=== PATIENT | female | born 1990 | race Two or more races ===

== ENCOUNTER 2016-07-19 06:08 | Inpatient (IN) | payer MEDICAID, OTHER ==
--- NOTE | 2016-07-19 06:38 | ED Physician Chart ---
Chief Complaint/HPI - Patient Information Date Seen:: 07/19/16 Time Seen:: 06:20 Chief Complaint:: abdominal pain History of Present Illness:: THIS IS A 26 YR OLD FEMALE WITH THE ONSET OF ABDOMINAL THIS AM ( 0300 HRS) ASSOCIATED WITH NAUSEA AND VOMITING X7. SHE STATES THAT SHE SMOKES BUT DOES NOT DRINK. SHE DENIES ALL OTHER MEDICAL PROBLEMS. SHE STATES THAT SHE HAD A GASTRIC BANDING IN 2007. SHE DENIES . SHE DENIES DIARRHEA AND CONSTIPATION. SHE DENIES PAINFUL URINATION AND A VAGINAL DISCHARGE. Allergies:: Allergies Allergy/AdvReac Type Severity Reaction Status Date / Time No Known Allergies Allergy Verified 07/19/16 06:21 Vitals:: Vital Signs - 8 hr 07/19/16 06:10 Temp 98.7 F HR 98 RR 18 BP 118/61 O2 Sat % 100 Historian:: Patient Review:: Nurse's Note Reviewed Review of Systems - Review of Systems General/Constitutional: No fever, No chills, No weight loss, No weakness, No diaphoresis, No edema, No loss of appetite Skin: No skin lesions, No rash, No bruising Head: No headache, No light-headedness Eyes: No loss of vision, No pain, No diplopia ENT: No earache, No nasal drainage, No sore throat, No tinnitus Neck: No neck pain, No swelling, No thyromegaly, No stiffness, No mass noted Cardio Vascular: No chest pain, No palpitations, No PND, No orthopnea, No edema Pulmonary: No SOB, No cough, No sputum, No wheezing GI: Nausea, Vomiting, No diarrhea, Pain, No melena, No hematochezia, No constipation, No hematemesis G/U: No dysuria, No frequency, No hematuria Musculoskeletal: No bone or joint pain, No back pain, No muscle pain Endocrine: No polyuria, No polydipsia Psychiatric: No prior psych history, No depression, No anxiety, No suicidal ideation Hematopoietic: No bruising, No lymphadenopathy Allergic/Immuno: No urticaria, No angioedema Neurological: No syncope, No focal symptoms, No weakness, No paresthesia, No headache, No seizure, No dizziness, No confusion, No vertigo Past Medical History - Past Medical History Obtainable: Yes Past Medical History: No significant medical hx Family History: None Social History: Smoker, No Alcohol, No Drug Use Surgical History: other (GASTRIC STAPLING) Psychiatricy History: None Medication: Reviewed Family Medical History - Family Member Mother History Unknown: Yes Physical Exam - Physical Examination General/Constitutional: Awake, Well-developed, well-nourished, Alert, No distress, GCS 15, Non-toxic appearing, Ambulatory Head: Atraumatic Eyes: Lids, conjuctiva normal, PERRL, EOMI Skin: Nl inspection, No rash, No skin lesions, No ecchymosis, Well hydrated, No lymphadenopathy ENMT: External ears, nose nl, Nasal exam nl, Lips, teeth, gums nl Neck: Nontender, Full ROM w/o pain, No JVD, No nuchal rigidity, No bruit, No mass, No stridor Respiratory: Nl effort/Exclusion, Clear to Auscultation, No Wheeze/Rhonchi/Rales Cardio Vascular: RRR, No murmur, gallop, rubs, NL S1 S2 GI: No organomegaly, No hernia, Normal BS's, Nondistended, No mass/bruits, No McBurney tenderness Other GI comments:: THERE IS TENDERNESS IN THE EPIGASTRIC AND BLADDER AREA WITH MILD REBOUND. : No CVA tenderness Extremities: No tenderness or effusion, Full ROM, normal strength in all extremities, No edema, Normal digits & nails Neuro/Psych: Alert/oriented, DTR's symmetric, Normal sensory exam, Normal motor strength, Judgement/insight normal, Mood normal, Normal gait, No focal deficits Misc: normal gait, Normal back, No paraspinal tenderness Assessment - Assessment General Assessment: DR DEL TORO WILL CARE FOR THE PATIENT STARTING AT 0800 HRS. ED Septic Shock - . Is Septic Shock (SBP<90, OR Lactate>4 mmol\L) present?: No - <6hrs of presentation: Vital Signs: Vital Signs - 8 hr 07/19/16 06:10 Temp 98.7 F HR 98 RR 18 BP 118/61 O2 Sat % 100 Reassessment (Disposition) - Reassessment Reassessment Condition:: Improved - Aftercare/Follow up Instructions Aftercare/Follow-Up Instructions:: Counseled pt regarding lab results/diagnosis & need follow up, Refer to Discharge Instructions, Counseled pt & family regarding lab results/diagnosis & need follow up - Patient Disposition Discharge/Transfer:: Home Condition at Disposition:: Improved ED Discharge Plan - Patient Disposition Admit/Discharge/Transfer: PT DISCHARGED HOME Condition at Disposition: Improved
[2016-07-19 06:51] LABS: % BASOPHILS 1.7 % (0.0-2.0); % EOSINOPHILS 1.8 % (0.0-5.0); % LYMPHOCYTES 5.3 % (20.0-50.0); % MONOCYTES 3.1 % (2.0-10.0); % NEUTROPHILS 88.1 % (40.0-80.0); HEMATOCRIT 41.1 % (35.0-45.0); MEAN CELL VOLUME 81.5 fl (81-100); MEAN CORPUSCULAR HEMOGLOBIN 27.8 pg (27.0-31.0); MEAN CORPUSCULAR HGB CONC 34.1 pg (28.0-36.0); MEAN PLATELET VOLUME 7.8 fl; NEUTROPHILE ABSOLUTE 9.7 Th/cmm (1.8-8.0); PLATELET COUNT 243 Th/cmm (150-400); RED BLOOD COUNT 5.04 Mil/cmm (3.80-5.10); RED CELL DISTRIBUTION WIDTH 12.5 % (11.5-20.0)
[2016-07-19 07:07] LABS: ALB/GLOB RATIO 1.3 (1.0-1.8); ALKALINE PHOSPHATASE 59 U/L (34-104); BILIRUBIN,TOTAL 0.6 mg/dL (0.3-1.0); BUN - UREA NITROGEN 18 mg/dL (7-25); BUN/CREATININE RATIO 25.7; CARBON DIOXIDE 24.8 mEq/L (21.0-31.0); CHLORIDE 107 mEq/L (98-107); CREATININE - SERUM 0.7 mg/dL (0.6-1.2); GLUCOSE 108 mg/dL (70-105); POTASSIUM SERUM 3.8 mEq/L (3.5-5.1); SGOT 17 U/L (13-39); SGPT/ALT 6 U/L (7-52); SODIUM SERUM 138 mEq/L (136-145)
[2016-07-19] MEDS ORDERED: Sodium Chloride 0.9% 1,000 ML IV ONE (07:35)
[2016-07-19 07:43] LABS: URINE BILIRUBIN NEGATIVE (NEGATIVE); URINE BLOOD MODERATE (NEGATIVE); URINE COLOR YELLOW; URINE GLUCOSE (UA) NEGATIVE (NEGATIVE); URINE KETONE TRACE mg/dL (NEGATIVE); URINE PROTEIN TRACE mg/dL (NEGATIVE); URINE UROBILINOGEN 0.2 E.U./dL (0.2 - 1.0)
[2016-07-19 07:48] LABS: URINE BACTERIA FEW /hpf (NONE SEEN); URINE EPITHELIAL CELLS FEW /lpf (FEW); URINE WBC 0-2 /hpf (0-5)
--- NOTE | 2016-07-19 08:50 | Diagnostic Imaging Report ---
CT scan abdomen and pelvis without intravenous contrast HISTORY: Pain Total DLP equals 395 CTDI equals 8.5 Axial sections were obtained from the xiphoid process down to the pubic symphysis. Exam demonstrates gastric band near the gastroesophageal junction. The liver exhibits a homogeneous parenchyma. No focal lesions. Spleen appears normal. No focal abnormality seen in the region of the pancreas. No focal renal lesions. No calculi. No hydronephrosis. There is a distended probably fluid-filled stomach. Mildly dilated small bowel is noted. No colonic dilatation. Significance is uncertain. Changes related to a partial small bowel obstruction cannot be definitely excluded. Clinical correlation is needed. The exam of the pelvis demonstrates preservation of normal fat planes. No abnormal soft tissue masses or abnormal fluid collections. IMPRESSION: 1. Gastric band about the gastroesophageal junction 2. Dilated fluid-filled stomach along with mildly dilated small bowel. Findings of questionable significance. Changes related to partial small bowel obstruction cannot be definitely excluded. Clinical correlation is needed.
[2016-07-19] MEDS ORDERED: Diatrizoate Meglumine/Diatri 30 mL Sol PO ONE (13:12)
[2016-07-19] MEDS ORDERED: 0.9% NS w/20 mEq KCL 1,000 ML IV SCH (13:30)
[2016-07-19] MEDS ORDERED: Levofloxacin 500mg/100mL 500 MG/100 ML BAG IV SCH (14:00)
[2016-07-19] MEDS ORDERED: Morphine Sulfate 2 mg/mL 1mL Syr IVP PRN (15:09)
--- NOTE | 2016-07-19 16:19 | Diagnostic Imaging Report ---
Small bowel follow-through HISTORY: Abdominal distention, pain Water-soluble contrast was administered orally. There is free flow contrast from the stomach and the small bowel. There is a normal small bowel caliber and mucosal fold pattern. No focal abnormalities. Normal transit time to the colon. No evidence of any extrinsic masses. IMPRESSION: Normal examination. No evidence of obstruction.
[2016-07-19] MEDS: metroNIDAZOLE 500mg/NS 100mL 500 MG/100 ML BAG IV SCH ×2 (19:53→21:48)
--- NOTE | 2016-07-19 21:06 | Admit Criteria Form ---
Admit Criteria Forms - Admit Criteria Diagnosis: ABDOMINAL PAIN Clinical Indications for Admission to Inpatient Care (Place 'X' for any and all applicable criteria): Admission is indicated for ANY ONE of the following(1)(2)(3)(4)(5): [X]I. Inpatient admission required rather than observation care (Also use Abdominal Pain: Observation Care, as appropriate) because of ANY ONE of the following: [ ]a) Severe pain requiring acute inpatient management [ ]b) Identification of etiology/finding that requires inpatient care (eg, aortic dissection, free air) [ ]c) Absent bowel sounds with complete ileus(6) [ ]d) Suspected toxic megacolon [ ]e) Severe electrolyte abnormalities requiring inpatient care [ ]f) High fever or infection requiring inpatient admission as indicated by ANY ONE of following(7)(8): [ ] i) Appropriate outpatient or observational care antimicrobial treatment unavailable, not effective, or not feasible [ ] ii) Documented bacteremia [ ] iii) Temperature > 104.9 degrees F (oral) [ ] iv) T >103.1 F (oral) or < 96.8 F(rectal) that does not respond to all emergency treatment measures [X]g) Signs of intestinal obstruction [B] [ ]h) Hemodynamic instability [ ]i) IV fluid to replace significant ongoing losses (greater than 3 L/m2 per day) (12)(13) [ ]j) Percutaneous or open drainage (eg, abscess, biliary tract ) procedures [ ]k) Parenteral nutrition regimen that must be implemented on inpatient basis [ ]l) Other condition,treatment or monitoring requiring inpatient admission. [ ]II. Peritoneal signs present [ ]III. Surgery needed that cannot be performed on an ambulatory basis. [ ]IV. Evaluation requires patient to not eat or drink for extended period ( eg, more than 24 hours). [ ]V. Contraindications and/or Inappropriate clinical situations for Observational Care in patients with abdominal pain, when ANY ONE of the following is required: [ ]a) Thorough evaluation is required to prevent catastrophic events due to delays in diagnosing (e.g.Mesenteric ischemia) 1,3 [ ]b) Patient with severe pathology or with chronic symptoms unlikely to improve in the ED stay (3) [ ]. General contraindications and/or Inappropriate clinical situations for Observational Care in patients with abdominal pain, when ANY ONE of the following is required: [ ]a) Prediction of prolongation of LOS based on ANY ONE of the following may be considered as a contraindication for observational care 2, 3, 4, 5, 6, 7, 8, 9, 10, 11 [ ]i) Age > 65 yrs. [ ]ii) Patient arriving by ambulance [ ]iii) Patient with high acuity [ ]iv) Patient requiring vital sign monitoring [ ]v) Patient on IV medication [ ]b) Systolic blood pressures 180mmHg 3,12 [ ]c) Patient with altered mental status including delirium and other alteration of consciousness, (3) [ ]d) Patient whose discharge disposition will be to a retirement home or rehabilitation home should not be managed in Emergency Department Observation Unit. CMS rule requires 3 days hospital stay before such placement.3,13 [ ]e) Patient with failure to thrive due to broad array of etiologies 3,16,17 [ ]f) Inability to ambulate 3,14 Extended stay beyond goal length of stay may be needed for(2)(3): [ ]a) Persistent abdominal pain with suspected intra-abdominal process [ ]b) Diagnosed condition requiring continued stay (e.g., pancreatitis, complicated diverticulitis) [ ]c) Surgery (e.g., colectomy) The original [employer] content created by [employer] has been revised. The portions of the content which have been revised are identified through the use of italic text or in bold, and [facility] has neither reviewed nor approved the modified material.All other unmodified content is copyright [employer]. Please see references footnoted in the original [facility] edition 2016 Admit Criteria Met?: Yes
--- NOTE | 2016-07-19 23:53 | History & Physical ---
ADMIT DATE: 07/19/2016 CHIEF COMPLAINT: Persistent vomiting. HISTORY OF PRESENT ILLNESS: This is a 26-year-old female who was brought to Emergency Room for persistent vomiting started few hours prior to arriving to the Emergency Room. The patient denies any associated fever, no chills, no diarrhea. Has this vague generalized abdominal pain. No chest pain, no shortness of breath or any other complaint reported. The patient had a CT abdomen and pelvis done in Emergency Room with history of possible partial small-bowel obstruction, so the patient was admitted for further evaluation and treatment. The patient underwent a small bowel series, which came back essentially normal. The patient is complaining of loose stool, but denies any vomiting. No abdominal pain. The patient does have underlying history of gastric band surgery. PAST MEDICAL HISTORY: Denies significant past medical history. PAST SURGICAL HISTORY: Gastric banding in the past. FAMILY HISTORY: Denies significant family history. SOCIAL HISTORY: Lives at home. Denies any alcohol, tobacco, or street drug use. CURRENT MEDICATIONS: As per the chart reviewed. ALLERGIES: No known drug allergies. REVIEW OF SYSTEMS: As per HPI, 12-point system is negative. PHYSICAL EXAMINATION: VITAL SIGNS: Temperature 99.3, pulse 70, respiration 18, blood pressure 101/53, oxygen saturation is 98% on room air. Pain 0/10. GENERAL APPEARANCE: The patient does not seem in acute distress. CARDIOVASCULAR: S1, S2 normal. LUNGS: Clear to auscultation. ABDOMEN: Soft, nontender. No distention noted. NEUROLOGIC: Alert, awake, moves all extremities, no focal deficits. EXTREMITIES: No edema noted. AVAILABLE LABORATORY DATA: WBC 11.0, hemoglobin 14.0, hematocrit 41.1 and platelet count is 243. Sodium 138, potassium 3.8, BUN is 18, creatinine 0.7. , ALT 6, TSH 0.62. Urine, blood moderate, leukocyte esterase negative, the rbc is 10-25 and bacteria few. ASSESSMENT: 1. Persistent vomiting, possibly viral gastroenteritis. 2. Microscopic hematuria, unclear etiology. 3. History of gastric band surgery. PLAN: The patient was kept n.p.o., started on IV fluids, admitted to Med/Surg unit, small bowel series ordered which came back negative, the patient was started on clear liquids;GI consulted, the patient was given symptomatic treatment for pain, nausea, vomiting. Follow up lab in a.chad Dennis and yl were started. We will follow up on the GI recommendation. Discussed with the patient regarding her condition and plan of care, she voiced understanding. JOB# [id number] WAQAS
--- NOTE | 2016-07-20 04:50 | Consultation ---
DATE OF CONSULTATION: 07/19/2016 GASTROENTEROLOGY CONSULTATION REQUESTING PHYSICIAN: Owen Guajardo M.D. REASON FOR CONSULTATION: Abdominal pain with nausea and vomiting. 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 She had recurrent emesis. A CT of the abdomen and pelvis earlier today without contrast showed gastric band near the GE junction, dilated fluid-filled stomach along with mildly dilated small bowel, which may be due to partial small-bowel obstruction. A subsequent small bowel series was unremarkable. The patient had copious bowel movements after her small bowel series. Her pain has now nearly resolved. She denies any further nausea or vomiting. She has never had a bowel obstruction previously. She has had intermittent bouts of abdominal bloating associated with nausea occurring 2-3 times a week for which she takes Librax and perhaps dicyclomine with improvement of symptoms. She never had an endoscopy or colonoscopy. She denies rectal bleeding or diarrhea. She denies any recent travel or bad food intake. There have been no sick contacts. PAST MEDICAL HISTORY: As above. MEDICATIONS: Here are Levaquin, Flagyl, morphine, Zofran and IV fluids with potassium. ALLERGIES: None. SOCIAL HISTORY: No known tobacco, alcohol, or drugs. She is a student. She is of [place] origin. FAMILY HISTORY: Noncontributory. No history of familial or Mediterranean fever. REVIEW OF SYSTEMS: A comprehensive 12-point review of systems was conducted and it is only positive for those signs and symptoms present in the history of present illness. PHYSICAL EXAMINATION: VITAL SIGNS: Temperature of 99.2, blood pressure is 108/68, pulse is 99, respirations are 18, and O2 sats 100%. GENERAL: The patient is well-developed, well-nourished female in no acute distress. HEENT: Sclerae nonicteric. Oropharynx is clear. CARDIOVASCULAR: Regular rate and rhythm. LUNGS: Clear to auscultation. ABDOMEN: Soft, nontender, and slightly distended. Normoactive bowel sounds. EXTREMITIES: No clubbing, cyanosis, or edema. RECTAL: Deferred. LABORATORY DATA AND IMAGING: WBC 11, hemoglobin 14, platelet count is 243,000. Creatinine is 0.7. Liver enzymes are normal. TSH is normal. Urinalysis showed moderate blood and 10-25 rbc's with negative urine test. IMPRESSION: 1. Abdominal pain with nausea and vomiting for 1-day duration, most likely a partial small bowel obstruction due to adhesions from previous surgery, less likely renal colic or acute gastroenteritis or acute gastritis from infectious etiology. 2. History of laparoscopic gastric band surgery in 2007. RECOMMENDATIONS: 1. We will offer clear liquids for tonight and advanced diet as tolerated. Eventually, she will need a low-residue diet at home. 2. Zofran as needed. 3. Pepcid. 4. Antibiotics. 5. Disposition as per hospitalist if the patient tolerates diet tomorrow without symptoms. 6. If nausea and vomiting recur, then consider upper endoscopy to evaluate the lap band site. Thank you, Dr. Owen Guajardo for involving us in the care of your patient. If you have any further questions, please call us. JOB# [id number] WAQAS
[2016-07-20] MEDS: metroNIDAZOLE 500mg/NS 100mL 500 MG/100 ML BAG IV SCH (05:37)
[2016-07-20 09:16] LABS: % EOSINOPHILS 3.1 % (0.0-5.0); % LYMPHOCYTES 28.7 % (20.0-50.0); % MONOCYTES 11.9 % (2.0-10.0); % NEUTROPHILS 55.3 % (40.0-80.0); MEAN CELL VOLUME 82.4 fl (81-100); MEAN CORPUSCULAR HEMOGLOBIN 28.4 pg (27.0-31.0); MEAN CORPUSCULAR HGB CONC 34.5 pg (28.0-36.0); MEAN PLATELET VOLUME 7.4 fl; NEUTROPHILE ABSOLUTE 2.3 Th/cmm (1.8-8.0); PLATELET COUNT 195 Th/cmm (150-400)
[2016-07-20 09:40] LABS: WHITE BLOOD COUNT 4.1 Th/cmm (4.8-10.8)
[2016-07-20 09:41] LABS: HEMATOCRIT 33.8 % (35.0-45.0); HEMOGLOBIN 11.6 gm/dL (11.7-15.5)
[2016-07-20 10:34] LABS: BUN - UREA NITROGEN 10 mg/dL (7-25); BUN/CREATININE RATIO 16.7; CALCIUM SERUM 8.1 mg/dL (8.6-10.3); CARBON DIOXIDE 21.3 mEq/L (21.0-31.0); CREATININE - SERUM 0.6 mg/dL (0.6-1.2); GLUCOSE 97 mg/dL (70-105); POTASSIUM SERUM 3.7 mEq/L (3.5-5.1); SODIUM SERUM 136 mEq/L (136-145)
[2016-07-20 10:49] LABS: ANION GAP 4.4 (7.0-16.0); CHLORIDE 114 mEq/L (98-107)
[2016-07-20] MEDS ORDERED: Dicyclomine 10 mg Cap PO SCH (17:00)
--- NOTE | 2016-07-20 18:06 | General Progress Note ---
Subjective - Review of Systems Service Date: 07/20/16 Subjective: Patient seen and examined feels better denied vomiting abd pain is better able to tolerate diet denied any other complaints Objective - Results Result Diagrams: 07/20/16 09:00 07/20/16 09:00 Recent Labs: Laboratory Last Values WBC 4.1 Th/cmm (4.8-10.8) L D 07/20/16 09:00 RBC 4.10 Mil/cmm (3.80-5.10) 07/20/16 09:00 Hgb 11.6 gm/dL (11.7-15.5) L D 07/20/16 09:00 Hct 33.8 % (35.0-45.0) L D 07/20/16 09:00 MCV 82.4 fl (81-100) 07/20/16 09:00 MCH 28.4 pg (27.0-31.0) 07/20/16 09:00 MCHC Differential 34.5 pg (28.0-36.0) 07/20/16 09:00 RDW 13.0 % (11.5-20.0) 07/20/16 09:00 Plt Count 195 Th/cmm (150-400) 07/20/16 09:00 MPV 7.4 fl 07/20/16 09:00 Neutrophils % 55.3 % (40.0-80.0) 07/20/16 09:00 Lymphocytes % 28.7 % (20.0-50.0) 07/20/16 09:00 Monocytes % 11.9 % (2.0-10.0) H 07/20/16 09:00 Eosinophils % 3.1 % (0.0-5.0) 07/20/16 09:00 Basophils % 1.0 % (0.0-2.0) 07/20/16 09:00 Sodium 136 mEq/L (136-145) 07/20/16 09:00 Potassium 3.7 mEq/L (3.5-5.1) 07/20/16 09:00 Chloride 114 mEq/L (98-107) H 07/20/16 09:00 Carbon Dioxide 21.3 mEq/L (21.0-31.0) 07/20/16 09:00 Anion Gap 4.4 (7.0-16.0) L 07/20/16 09:00 BUN 10 mg/dL (7-25) 07/20/16 09:00 Creatinine 0.6 mg/dL (0.6-1.2) 07/20/16 09:00 Est GFR ( Amer) > 60.0 ml/min (>90) 07/20/16 09:00 Est GFR (Non-Af Amer) > 60.0 ml/min 07/20/16 09:00 BUN/Creatinine Ratio 16.7 07/20/16 09:00 Glucose 97 mg/dL (70-105) 07/20/16 09:00 Calcium 8.1 mg/dL (8.6-10.3) L 07/20/16 09:00 Total Bilirubin 0.6 mg/dL (0.3-1.0) 07/19/16 06:36 AST 17 U/L (13-39) 07/19/16 06:36 ALT 6 U/L (7-52) L 07/19/16 06:36 Alkaline Phosphatase 59 U/L (34-104) 07/19/16 06:36 Total Protein 7.1 gm/dL (6.0-8.3) 07/19/16 06:36 Albumin 4.0 gm/dL (3.7-5.3) 07/19/16 06:36 Globulin 3.1 gm/dL 07/19/16 06:36 Albumin/Globulin Ratio 1.3 (1.0-1.8) 07/19/16 06:36 Lipase 4 U/L (11-82) L 07/20/16 09:00 TSH 0.62 uIU/ml (0.34-5.60) 07/19/16 06:36 Urine Source CLEAN C 07/19/16 07:25 Urine Color YELLOW 07/19/16 07:25 Urine Clarity CLEAR (CLEAR) 07/19/16 07:25 Urine pH 7.0 07/19/16 07:25 Ur Specific [place] 1.025 (1.005-1.030) 07/19/16 07:25 Urine Protein TRACE mg/dL (NEGATIVE) 07/19/16 07:25 Urine Glucose (UA) NEGATIVE mg/dL (NEGATIVE) 07/19/16 07:25 Urine Ketones TRACE mg/dL (NEGATIVE) 07/19/16 07:25 Urine Blood MODERATE (NEGATIVE) H 07/19/16 07:25 Urine Nitrate NEGATIVE (NEGATIVE) 07/19/16 07:25 Urine Bilirubin NEGATIVE (NEGATIVE) 07/19/16 07:25 Urine Urobilinogen 0.2 E.U./dL (0.2 - 1.0) 07/19/16 07:25 Ur Leukocyte Esterase NEGATIVE (NEGATIVE) 07/19/16 07:25 Urine RBC 10-25 /hpf (0-5) H 07/19/16 07:25 Urine WBC 0-2 /hpf (0-5) 07/19/16 07:25 Ur Epithelial Cells FEW /lpf (FEW) 07/19/16 07:25 Urine Bacteria FEW /hpf (NONE SEEN) 07/19/16 07:25 Urine Mucus FEW /lpf (FEW) 07/19/16 07:25 Urine Test NEGATIVE 07/19/16 07:25 - Physical Exam Vitals and I&O: Vital Signs Temp 98.1 F 07/20/16 15:51 Pulse 67 07/20/16 15:51 Resp 18 07/20/16 15:51 BP 113/55 07/20/16 15:51 Pulse Ox 100 07/20/16 15:51 Intake & Output 07/19/16 07/20/16 07/20/16 18:59 06:59 18:59 Intake Total 100 Balance 100 Intake: Intake, IV Amount 100 metroNIDAZOLE 500mg/NS 100 100mL 500 mg In 100 ml @ 100 mls/hr IV Q8HR [facility] Rx #:[id number] Other: Stool Characteristics Formed Formed Cardiovascular: Regular rate Lungs: Clear to auscultation Abdomen: Soft, no Tender Assessment/Plan - Assessment Assessment: ABD PAIN and VOMITING possibley Viral gastroenteritis better H/o Gastric band surgery - Plan Plan: Patient was seen and cleared by GI DC plan discussed with the patient Follow up in the office in one week Patient was advised to return to ER if symptoms reoccur
== END 2016-07-20 17:00 | disposition home or self-care (01) | DRG 392 ==
LOC: ER 06:08 → MSI 10:46
PROVIDERS: ADMIT Family Medicine; ATTEND Family Medicine
DX: A08.4 Viral intestinal infection, unspecified (principal); K56.5 Intestinal adhesions [bands] with obstruction (postinfection); R31.29 Other microscopic hematuria; Z98.84 Bariatric surgery status; Z79.899 Other long term (current) drug therapy
CPT/HCPCS: 36415-UA; 74250-TC; 80048-TC; 80053-TC; 81001-TC; 81025-TC; 83690-TC; 84443-TC; 85025-TC; 90799; 96374; J0696; J1956; J2270; J2405; J3480; J3490; J7030; Q0162